=== PATIENT | female | born 1985 | race Caucasian/White ===

== ENCOUNTER 2024-12-28 13:14 | Outpatient (CLI) | payer BC | END 2024-12-28 13:15 | disposition home or self-care (01) | LOC: SCSBT 13:14 | PROVIDERS: ATTEND Nurse Practitioner Family | DX: Z13.820 Encounter for screening for osteoporosis (principal); Z79.899 Other long term (current) drug therapy; M85.89 Other specified disorders of bone density and structure, multiple sites | CPT/HCPCS: 77080 ==